=== PATIENT | male | born 1990 | race Two or more races ===

== ENCOUNTER 2016-07-14 05:52 | Emergency (ER) | payer SELFPAY ==
[~2016-07-14] VITALS: Ht 180.3 cm; Wt 81.8 kg
[2016-07-14 05:57] VITALS: BP 146/101; PULSE 109; RESP 16; O2SAT 100
--- NOTE | 2016-07-14 06:07 | ED.REPORT ---
HPI-Abd Pain M Under 39 Date of Service Jul 14, 2016 ED Provider: Maurizio Almeida DO Pt is a 26 y/o male presenting to the ED c/o epigastric abdominal pain onset last night. He c/o associated coffee-ground emesis vomiting x2, diarrhea x2/ day. He reports a cold-like illness for 2 weeks with nasal congestion and cough with sick contacts for these symptoms. He denies fever. He has been drinking about 1-2 beers per day recently after not drinking for 6 years. He has a distant history of alcoholic gastritis and denies any hx of GERD. No abdominal surgeries. Nursing Notes Stated Complaint: ABDOMINAL PAIN/VOMITING BLOOD Chief Complaint: Male Abdominal Pain Nursing Notes Reviewed: Yes Allergies: Coded Allergies: Penicillins (Verified Allergy, Unknown, 07/14/16) Scheduled Pantoprazole DR (Protonix) 40 Mg Tablet 40 MG PO ASDIRECTED Bid for 2 weeks, then Daily General Time Seen by MD: 06:03 Chief Complaint Abdominal pain Hx Obtained From: Patient Arrived By: Walk-in Sudden in Onset?: Yes Onset Occurred: 5 - 8 hours ago Symptom Duration: Since onset Progression since Onset: Unchanged Location: : Diffuse: Epigastric Quality: Painful Radiation: : Does not radiate Severity: Current: Moderate Severity: Maximum: Severe Similar Sx Previous: No Past Medical History Past Medical History Hx alcoholic gastritis Past Surgical History Hand Smoking History Current Some Day Smoker Social History Alcohol Use: 1-3 per day Drug Use: Denies drug use Ambulatory Status Independent Review of Systems Constitutional: Denies: Chills, Fever Respiratory: Reports: Non-productive cough GI: Reports: Abdominal pain, Diarrhea, Hematemesis, Nausea, Vomiting Complete sys rev & neg: except as marked. Ears / Nose / Throat: Reports: Nasal congestion Physical Exam Initial Vital Signs Vital Signs (First) Date Time Temp Pulse Resp B/P Pulse Ox O2 Delivery O2 Flow Rate FiO2 07/14/16 05:57 35.9 109 16 146/101 100 Room Air Initial VS: Reviewed, Vital signs abnormal Head / Eyes: Atraumatic, Normocephalic, PERRL Neck: Supple, Full range of motion Extremities: Vascular intact, Neuro intact, No swelling, No tenderness Skin: Warm, Dry, No cyanosis Neurologic: Alert, Oriented, Nonfocal Psychiatric: Mood/affect normal, Behavior normal, Normal thought content General/Constitutional: Awake, Alert, No acute distress, Cooperative, Not toxic appearing Respiratory / Chest: Atraumatic, Breath sounds NL, Breath sounds = bilat, No respiratory distress, No rales, No rhonchi, No wheezing, No retractions, No stridor, No chest tenderness, No chest wall deformity, No crepitus Cardiovascular: Regular rhythm, Heart sounds NL, No gallop, No murmurs, No rubs , Cap refill not delayed, Peripheral circulation NL Heart Rate / Rhythm: Positive: Tachycardia Abdomen: Atraumatic, Soft, No guarding, No rebound, No palpable mass Tenderness/Guarding/Rebound: Positive: Tender epigastric (mild) Back: Full range of motion, Painless range of motion Interpretation & Diagnostics Lab Results Interpretation Result Diagram: 07/14/16 0815 07/14/16 0640 Test 07/14/16 06:40 07/14/16 08:15 White Blood Count 7.5th/mm3 (3.8-10.1) Red Blood Count 5.59mil/mm3 (4.40-5.80) Mean Corpuscular Volume 82.5fL (81-100) Mean Corpuscular Hemoglobin 29.7pg (27.0-35.0) Mean Corpuscular Hemoglobin Concent 36.0% (32.0-37.0) Red Cell Distribution Width 14.0% (12.3-15.4) Platelet Count 275bil/L (150-400) Neutrophils (%) (Auto) 56.2% (40-74) Lymphocytes (%) (Auto) 30.8% (14-46) Monocytes (%) (Auto) 10.4% (4-12) Eosinophils (%) (Auto) 1.9% (0-5) Basophils (%) (Auto) 0.3% (0-3) Sodium Level 141mEq/L (134-144) Potassium Level 4.2mEq/L (3.5-5.2) Chloride Level 103mEq/L (97-108) Carbon Dioxide Level 24mmol/L (18-29) Blood Urea Nitrogen 13mg/dL (6-20) Creatinine 0.86mg/dL (0.76-1.27) Estimat Glomerular Filtration Rate 113mL/min (>59) Glucose Level 93mg/dL (60-99) Calcium Level 9.6mg/dL (8.5-10.1) Magnesium Level 1.9mg/dL (1.6-2.6) Total Bilirubin 0.2mg/dL (0.0-1.2) Aspartate Amino Transf (AST/SGOT) 26U/L (0-50) Alanine Aminotransferase (ALT/SGPT) 19U/L (0-44) Alkaline Phosphatase 81U/L (25-150) Total Protein 7.6g/dL (6.4-8.4) Albumin 4.4g/dL (3.4-5.0) Lipase 31U/L (13-60) Hold Bangura Top Tube Received (Received) Hemoglobin 15.5g/dL (13.8-17.2) Hematocrit 42.8% (41.0-50.0) Re-Eval/Medical Decision Med Decision/Clinical Course Epigastric pain after recently resuming alcohol use, associated with some amount of coffee-ground emesis. Patient's labs are unremarkable, normal BUN to creatinine ratio, normal hemoglobin, and no reported massive volume of hematemesis. This would all suggest this is not life threatening gastrointestinal bleeding. Additionally, there is no other evidence of other pathology based on laboratory studies. I feel that advanced imaging at this time would be very low yield as it seems the patient is clinically stable. Protonix is recommended, as well as a bland diet and alcohol cessation. Long discussion about expectations, education, reassurance, and follow-up precautions given as well. Re-Evaluation/Progress : Time of Eval: 07:54 Patient Status: Condition improved, Moderate relief, Pain resolved Re-Evaluation/Progress Note: Pt rechecked. Pain improved, vomiting resolved. Informed pt of plan for treatment. Pt understands and agrees with plan for treatment. F/U and RTER warnings given. All questions addressed. Counseled Regarding: Diagnosis, Lab results, Need for follow-up, When/why to return to ED Patient Discharge & Departure Primary Impression: Epigastric pain Disposition: Home Discharge Condition All VS Reviewed: Yes Condition: Stable Patient Instructions: Acute Nausea and Vomiting (ED) Additional Instructions: It seems that your pain is likely related to your stomach. It does not seem at this time that you are having life-threatening intestinal bleeding. Begin taking Protonix twice daily. Use [id number] antacids as needed. Follow a bland diet. Stop drinking alcohol and avoid caffeine, soda, or spicy foods. Follow-up with a cylinder filler in the next few weeks. Return to the emergency department if you experience increasing abdominal pain, develop a high fever, bloody stool, uncontrolled vomiting, profound weakness, or for other concerning symptoms. Referrals: Mike Tinoco MD [facility] Res[facility] Scribe Attestation Portions of this note were transcribed by Jackson Short. I, Dr. Almeida personally performed the history, physical exam and medical decision-making; I reviewed and confirmed the accuracy of the information in the transcribed note. Signed by Brittney Rogers, 07/14/16 - 0610 Maurizio Almeida DO Jul 14, 2016 06:07 JACKSON SHORT Jul 14, 2016 06:19
[2016-07-14] MEDS ORDERED: 0.9% Sodium Chloride 1,000 ML IV ONE (06:12)
[2016-07-14] MEDS ORDERED: Pantoprazole 4 mg/mL 10 mL Inj IVPUSH ONE (06:15)
[2016-07-14] MEDS ORDERED: Ondansetron 2 mg/mL 2 mL Inj IVPUSH PRN (06:15)
[2016-07-14] MEDS ORDERED: Alum-Mag Hydrox-Simeth 30 mL Suspension PO ONE (06:15)
[2016-07-14 06:56] LABS: BASOPHILS % (AUTO) 0.3 % (0-3); EOSINOPHILS % (AUTO) 1.9 % (0-5); MONOCYTES % (AUTO) 10.4 % (4-12); Mean Corpuscular Hemoglobin 29.7 pg (27.0-35.0); Mean Corpuscular Volume 82.5 fL (81-100); NEUTROPHILS % (AUTO) 56.2 % (40-74); Platelet Count 275 bil/L (150-400)
[2016-07-14 07:21] LABS: Magnesium 1.9 mg/dL (1.6-2.6)
[2016-07-14] MEDS ORDERED: PANT40TA2 PO (07:53)
[2016-07-14 08:33] VITALS: BP 150/91; PULSE 90; RESP 17; O2SAT 98
== END 2016-07-14 08:34 | disposition home or self-care (01) ==
LOC: SED 05:52
DX: R10.13 Epigastric pain (principal); R11.10 Vomiting, unspecified; R19.7 Diarrhea, unspecified; R05 Cough; R09.81 Nasal congestion; F17.200 Nicotine dependence, unspecified, uncomplicated; Z88.0 Allergy status to penicillin
CPT/HCPCS: 36415; 80053; 83690; 83735; 85014; 85018; 85025; 86850; 96361; 96374; 96375; 96376; 99285; J2270; J7030

== ENCOUNTER 2016-08-04 12:34 | Emergency (ER) | payer SELFPAY ==
[~2016-08-04] VITALS: Ht 180.3 cm; Wt 86.4 kg
[~2016-08-04 12:34] MED LIST: PANT40TA2 PO
[2016-08-04 12:47] VITALS: BP 144/92; PULSE 94; RESP 18; O2SAT 97
--- NOTE | 2016-08-04 13:51 | DRSVH ---
PROCEDURE: X-RAY CHEST, TWO VIEWS ([id number]) INDICATIONS: cough/+smoker TECHNIQUE: 2 views of the chest were acquired. COMPARISON: None. FINDINGS: Surgical changes and devices: None. Lungs and pleura: No pleural effusions or pneumothorax. Lungs are clear. Mediastinum: Mediastinal contours are normal. Heart size is normal. Bones and chest wall: No suspicious bony abnormalities. Soft tissues appear unremarkable. IMPRESSION: No acute process. Dictated by: Kaleigh Bull M.D. on 08/04/2016 at 13:17 Approved by: Kaleigh Bull M.D. on 08/04/2016 at 13:17
--- NOTE | 2016-08-04 14:01 | ED.REPORT ---
HPI-General Illness Date of Service Aug 04, 2016 ED Provider: Boogie Joseph MD Pt is a 26 y/o healthy male presenting to the ED with multiple complaints onset this morning. He is c/o CP with coughing, fatigue, nausea, vomiting, diarrhea, cough (2 months), chills, myalgias. The patient works at a [employer] and today he woke up feeling very fatigued. He did not receive the flu shot this year. He denies hematemesis. He drinks a small amount of alcohol. Nursing Notes Stated Complaint: CHEST PAIN/WHEEZING/COUGHING/FATIGUE/VOMITING Chief Complaint: FLU/Cold Symptoms Nursing Notes Reviewed: Yes Allergies: Coded Allergies: Penicillins (Verified Allergy, Unknown, 07/14/16) Scheduled Pantoprazole DR (Protonix) 40 Mg Tablet 40 MG PO ASDIRECTED Bid for 2 weeks, then Daily Scheduled PRN Ondansetron ODT (Zofran ODT) 4 Mg Tablet 4 MG PO Q4H PRN PRN For Nausea General Time Seen by MD: 13:22 Chief Complaint Multip medical complaints Hx Obtained From: Patient Arrived By: Walk-in Sudden in Onset?: No Onset Occurred: 5 - 8 hours ago Symptom Duration: Since onset Location: : Chest Severity: Current: Mild Severity: Maximum: Mild Past Medical History Past Medical History Hx alcoholic gastritis Past Surgical History Hand Smoking History Current Some Day Smoker Social History Alcohol Use: 1-3 per day Drug Use: Denies drug use Ambulatory Status Independent Review of Systems Full Review of Systems Constitutional: Reports: Chills, Fatigue, Malaise, Weakness - generalized, Denies: Fever Respiratory: Reports: Non-productive cough, Pleuritic pain Cardiovascular: Reports: Chest pain GI: Reports: Diarrhea, Nausea, Vomiting, Denies: Abdominal pain Musculoskeletal: Reports: Myalgia Complete sys rev & neg: except as marked. Physical Exam Vital Signs Vital Signs Date Time Temp Pulse Resp B/P Pulse Ox O2 Delivery O2 Flow Rate FiO2 08/04/16 12:47 36.2 94 18 144/92 97 Room Air Initial VS: Reviewed, Vital signs normal Head / Eyes: Atraumatic, Normocephalic, PERRL Neck: Supple, Full range of motion Respiratory: Breath sounds normal, Clear to auscultation, No respiratory distress Cardiovascular: Regular rate & rhythm, Heart sounds normal, Intact distal pulses Abdomen / GI: Soft, Non-tender, No guarding, No rebound, No distention Extremities: Vascular intact, Neuro intact, No swelling, No tenderness Skin: Warm, Dry, No cyanosis Neurologic: Alert, Oriented, Nonfocal Psychiatric: Mood/affect normal, Behavior normal, Normal thought content General/Constitutional: Awake, Alert, No acute distress, Cooperative, Not toxic appearing Appearance / Presentation: Positive: Ill appearing/not toxic ENT: Atraumatic, Airway patent, Mucous membranes moist Mild erythema of the pharynx without exudates Interpretation & Diagnostics X-Ray Chest Interpretation Chest Xray Interpretation: IMPRESSION: No acute process. Dictated by: Kaleigh Bull M.D. on 08/04/2016 at 13:17 Approved by: Kaleigh Bull M.D. on 08/04/2016 at 13:17 View: Portable, AP & lat Interpretation / Wet Read by: Interpret - Radiologist Re-Eval/Medical Decision Med Decision/Clinical Course Pt is a 26 y/o healthy male presenting to the ED with multiple complaints onset this morning. He is c/o CP with coughing, fatigue, nausea, vomiting, diarrhea, cough (2 months), chills, myalgias. The patient works at a [employer] and today he woke up feeling very fatigued. He did not receive the flu shot this year. He denies hematemesis. He drinks a small amount of alcohol. Rapid influenza: negative CXR: Obtained, reviewed and interpreted by myself shows no evidence of acute infiltrates, effusions or pneumothorax. Cardiac and mediastinal silhouette normal. No bony or soft tissue abnormalities. Emergency department the patient is afebrile and hemodynamically stable. He is in no apparent distress though he appears generally ill. Overall presentation most consistent with viral illness. No evidence of acute surgical intra- abdominal process or meningitis. I do not feel that further workup is indicated. I offered the patient IV fluids however he declined. He is treated with Zofran and ibuprofen and reported symptom improvement. He was able to tolerate PO fluids. The patient was provided with follow-up precautions at discharge in stable condition. He has been prescribed Zofran as needed for nausea. He has been advised to return right away for any worsening symptoms. Time of Eval: 15:14 Re-Evaluation/Progress Note: Pt rechecked. Informed pt of plan for treatment. Pt understands and agrees with plan for treatment. F/U instructions and RTER warnings given. All questions addressed. Counseled Regarding: Diagnosis, Lab results, Need for follow-up, When/why to return to ED Discharge & Departure Primary Impression: Flu-like symptoms Additional Impressions: Viral illness Myalgia Cough Disposition: Home Discharge Condition All VS Reviewed: Yes Condition: Stable Patient Instructions: Influenza (ED) Additional Instructions: Thank you for seeking care at emergency room. It is difficult for us to make definitive diagnoses in the ED but we believe that you are experiencing a flu-like illness. Our flu test is only 60% accurate. Our primary goal today in the ED was to evaluate you for any life-threatening conditions. Your evaluation was reassuring. You will be discharged with a prescription for Zofran. Take this as needed for nausea and vomiting. You should be improving in 48 hours. You should follow-up with your primary doctor in the next week. You should return to the ED immediately if you develop bloody vomiting, high fevers, cough, shortness of breath, chest pain, increased lightheadedness, weakness or any other concerning signs or symptoms. Thank you for letting us partake in your care today. Referrals: [facility] Scribe Attestation Portions of this note were transcribed by aJckson Short. I, Dr. Joseph personally performed the history, physical exam and medical decision-making; I reviewed and confirmed the accuracy of the information in the transcribed note. Signed by Brittney Rogers, 08/04/16 - 0840 Boogie Joseph MD Aug 04, 2016 14:01 JACKSON SHORT Aug 04, 2016 14:21
[2016-08-04] MEDS ORDERED: ONDA4TAB9 PO (15:18)
== END 2016-08-04 15:30 | disposition home or self-care (01) ==
LOC: SED 12:34
DX: B34.9 Viral infection, unspecified (principal); M79.1 Myalgia; R05 Cough; R53.83 Other fatigue; R11.2 Nausea with vomiting, unspecified; R19.7 Diarrhea, unspecified; R68.83 Chills (without fever); R07.9 Chest pain, unspecified; F17.200 Nicotine dependence, unspecified, uncomplicated; Z88.0 Allergy status to penicillin